=== PATIENT | female | born 1995 | race Two or more races ===

== ENCOUNTER 2020-10-23 12:45 | Inpatient (IN) | payer OTHER ==
[~2020-10-23] VITALS: Ht 160 cm; Wt 98.4 kg
[2020-10-27] MEDS ORDERED: LEVOTHYROXINE25 MCG PO (15:02)
[2020-10-27] MEDS ORDERED: VITAL-D RX TAB1 EACH PO (15:03)
[2020-10-27] MEDS ORDERED: ACYCLOVIR SODI500 MG PO (15:04)
== END 2020-10-30 11:41 | disposition home or self-care (01) | DRG 807 ==
LOC: LDR 10-26 12:45 → OB/GYN 10-27 11:07 → LDR 10-27 17:03 → OB/GYN 10-28 18:20
PROVIDERS: ADMIT Specialist; ATTEND Specialist
PROC: 3E0D7GC Introduction of Other Therapeutic Substance into Mouth and Pharynx, Via Natural or Artificial Opening (ICD-10-PCS; 2020-10-27)
PROC: 4A1HXFZ Monitoring of Products of Conception, Cardiac Rhythm, External Approach (ICD-10-PCS; 2020-10-27)
PROC: 10E0XZZ Delivery of Products of Conception, External Approach (ICD-10-PCS; principal; 2020-10-28)
PROC: 0HQ9XZZ Repair Perineum Skin, External Approach (ICD-10-PCS; 2020-10-28)
PROC: 10907ZC Drainage of Amniotic Fluid, Therapeutic from Products of Conception, Via Natural or Artificial Opening (ICD-10-PCS; 2020-10-28)
PROC: 3E033VJ Introduction of Other Hormone into Peripheral Vein, Percutaneous Approach (ICD-10-PCS; 2020-10-28)
DX: O70.0 First degree perineal laceration during delivery (principal); Z37.0 Single live birth; O48.0 Post-term pregnancy; Z3A.40 40 weeks gestation of pregnancy; Z20.822 Contact with and (suspected) exposure to COVID-19

== ENCOUNTER 2023-08-14 13:47 | Emergency (ER) | payer OTHER ==
[~2023-08-14] VITALS: Ht 160 cm; Wt 83.5 kg
[~2023-08-14 13:47] MED LIST: ACYCLOVIR SODI500 MG PO; LEVOTHYROXINE25 MCG PO; VITAL-D RX TAB1 EACH PO
[2023-08-14 18:05] LABS: URINE APPEARANCE Turbid; URINE BILIRRUBIN Small (NEGATIVE); URINE BLOOD Large; URINE COLOR Orange; URINE GLUCOSE Negative (NEGATIVE); URINE LEUKOCYTE Moderate; URINE NITRATE Positive
[2023-08-14 18:06] LABS: HEMATOCRIT 36.8 % (36.0-45.00); HEMOGLOBIN 12.4 g/dL (12.0-15.00); MEAN CORPUSCULAR HEMOGLOBIN 30.3 pg (27.00-32.0); MEAN CORPUSCULAR HGB CONC 33.7 g/dl (32.0-36.0); PLATELET COUNT 273 K/uL (150-450); RED BLOOD COUNT 4.09 M/uL (4.00-6.00); RED CELL DISTRIBUTION WIDTH 13.5 % (11.5-14.5)
[2023-08-14 18:09] LABS: URINE EPITHELIAL CELLS 6.8 uL (0.0-38.8); URINE RBC 8201.4 uL (0.0-20.8); URINE WBC 989.5 uL (0.0-23.2)
[2023-08-14 18:22] LABS: URINE PROTEIN 100 (NEGATIVE)
[2023-08-14 18:25] LABS: INR 1.13; PARTIAL THROMBOPLASTIN TIME 32.8 SECONDS (22.0-34.0); PROTHROMBIN TIME 11.8 SECONDS (9.0-11.5)
[2023-08-14 18:30] LABS: ALBUMIN 3.1 gm/dL (3.4-5.0); BILIRUBIN TOTAL 0.71 mg/dL (0.3-1.2); CALCIUM 9.2 mg/dL (8.5-10.1); CREATININE SERUM 0.81 mg/dL (0.55-1.02); GFR 83.59; GLOBULINA 4.9 G/DL (2.4-3.5); POTASSIUM 3.85 mEq/L (3.5-5.1)
== END 2023-08-15 03:59 | disposition home or self-care (01) ==
LOC: ER 13:47
PROVIDERS: Emergency Medicine
DX: N39.0 Urinary tract infection, site not specified (principal); Z91.02 Food additives allergy status